=== PATIENT | male | born 1955 | race Caucasian/White ===

== ENCOUNTER 2017-01-02 10:31 | Inpatient (IN) | payer OTHER, BC ==
[~2017-01-02] VITALS: Ht 175.3 cm; Wt 58.4 kg
[2017-01-02 11:19] LABS: EOSINOPHIL (%) 0 % (0-5); IMMATURE GRANULOCYTE (%) 0.9 % (0.0-0.7); IMMATURE GRANULOCYTE COUNT 0.2 K/uL; INSTRUMENT ABS NEUTROPHIL CT 14.1 K/uL; LYMPHOCYTE COUNT 1.3 K/uL (1.0-2.8); MCH 28.7 PG (29.0-34.0); MCHC 34.3 G/DL (30.0-36.0); MCV 83.7 FL (86-99); MEAN PLAT.VOLUME 9.1 uM^3 (9.0-12.4); MONOCYTE (%) 8.5 % (3-12); MONOCYTE COUNT 1.5 K/uL (0-0.8); NEUTROPHIL (%) 82.7 % (45-76); NEUTROPHIL COUNT 14.1 K/uL (1.8-6.4); NRBC (%) 4.6 /100 WBC (0-0); PLATELET COUNT 387 K/uL (156-360); RBC DIS.WIDTH-CV 16.7 % (11.8-14.6); RED BLOOD COUNT 4.42 M/uL (4.00-5.50); WHITE BLOOD COUNT 17.1 K/uL (4.1-10.2)
[2017-01-02 11:25] LABS: INTER. NORMALIZED RATIO 1.6; PROTHROMBIN TIME 17.8 SEC (10.2-12.9)
[2017-01-02 11:27] LABS: PTT 28.4 SEC (25-37)
[2017-01-02 11:27] LABS: BASE EXCESS 0.4 mEq/L (-3 to +3); BICARBONATE 22.9 mEq/L (22-26); CARBOXY HGB 2.7 % (0-5); COMMENTS - BLOOD GASES C+; DEVICE HFNC; METHEMOGLOBIN 0.7 % (0-1.5); O2 FLOW 10 L/MIN; PCO2 30 mm Hg (35-45); PO2 74 mm Hg (80-100); SITE RB; pH 7.49 (7.35-7.45)
[2017-01-02 11:28] LABS: TOTAL RESP RATE 28 resp/min
[2017-01-02 11:29] LABS: CHLORIDE 104 mEq/L (99-109); POTASSIUM 4.7 mEq/L (3.7-5.4); SODIUM 138 mEq/L (136-147)
[2017-01-02 11:31] LABS: GLUCOSE 128 mg/dL (70-99)
[2017-01-02 11:32] LABS: ANION GAP 12 MEQ/L (2-14)
[2017-01-02 11:35] LABS: GFR ESTIMATE (CALCULATED) > 59 mL/min/; UREA NITROGEN (BUN) 33 mg/dL (9-23)
[2017-01-02 11:40] LABS: TROP-I INTERPRETATION NEGATIVE; TROPONIN-I 0.15 ng/mL (0.0-0.30)
[2017-01-02] MEDS ORDERED: OSTEO BI-FLEX1 EAC2 PO (13:15)
[2017-01-02] MEDS ORDERED: LORATADINE10 M2 PO (13:15)
[2017-01-02] MEDS ORDERED: NAPROSYN250 MG PO (13:15)
[2017-01-02] MEDS ORDERED: VITAMIN D31000 UNI2 PO (13:15)
[2017-01-02 16:00] VITALS: BP 115/73
[2017-01-02 16:15] VITALS: BP 115/73
[2017-01-02 19:30] LABS: TROP-I INTERPRETATION NEGATIVE; TROPONIN-I 0.17 ng/mL (0.0-0.30)
[2017-01-02 20:27] VITALS: BP 101/64
[2017-01-02 22:33] VITALS: BP 101/62
[2017-01-03] VITALS (7 sets, daily range): BP systolic 90–107; BP diastolic 58–72
[2017-01-03 04:46] LABS: HEMATOCRIT 34.8 % (38.0-50.0); MCH 28.8 PG (29.0-34.0); MCHC 34.5 G/DL (30.0-36.0); MCV 83.7 FL (86-99); NRBC (%) 4.9 /100 WBC (0-0); PLATELET COUNT 365 K/uL (156-360); RBC DIS.WIDTH-CV 16.6 % (11.8-14.6); RBC DIS.WIDTH-SD 45.9 % (39-53); RED BLOOD COUNT 4.16 M/uL (4.00-5.50)
[2017-01-03 05:10] LABS: CHLORIDE 104 mEq/L (99-109); POTASSIUM 4.3 mEq/L (3.7-5.4); SODIUM 138 mEq/L (136-147); TROP-I INTERPRETATION NEGATIVE; TROPONIN-I 0.17 ng/mL (0.0-0.30)
[2017-01-03 05:12] LABS: GLUCOSE 160 mg/dL (70-99)
[2017-01-03 05:13] LABS: ANION GAP 12 MEQ/L (2-14)
[2017-01-03 05:16] LABS: GFR ESTIMATE (CALCULATED) > 59 mL/min/; UREA NITROGEN (BUN) 36 mg/dL (9-23)
[2017-01-03 06:57] LABS: Estimated Average Glucose 163 mg/dL (70-123); HEMOGLOBIN A1c (GLYCOHEMOGLOB) 7.3 % HGB (Below 5.7)
[2017-01-04 05:14] LABS: EOSINOPHIL (%) 0 % (0-5); HEMATOCRIT 30.8 % (38.0-50.0); IMMATURE GRANULOCYTE (%) 0.7 % (0.0-0.7); IMMATURE GRANULOCYTE COUNT 0.2 K/uL; INSTRUMENT ABS NEUTROPHIL CT 18.8 K/uL; LYMPHOCYTE COUNT 0.7 K/uL (1.0-2.8); MCH 28.6 PG (29.0-34.0); MCHC 33.8 G/DL (30.0-36.0); MCV 84.6 FL (86-99); MEAN PLAT.VOLUME 8.9 uM^3 (9.0-12.4); MONOCYTE (%) 5.4 % (3-12); MONOCYTE COUNT 1.1 K/uL (0-0.8); NEUTROPHIL (%) 90.5 % (45-76); NEUTROPHIL COUNT 18.8 K/uL (1.8-6.4); NRBC (%) 2.1 /100 WBC (0-0); PLATELET COUNT 356 K/uL (156-360); RBC DIS.WIDTH-CV 16.5 % (11.8-14.6); RBC DIS.WIDTH-SD 46.5 % (39-53); RED BLOOD COUNT 3.64 M/uL (4.00-5.50); WHITE BLOOD COUNT 20.8 K/uL (4.1-10.2)
[2017-01-04 05:19] LABS: INTER. NORMALIZED RATIO 1.8; PROTHROMBIN TIME 21.1 SEC (10.2-12.9)
[2017-01-04 05:32] VITALS: BP 95/58
[2017-01-04 05:41] LABS: ALKALINE PHOSPHATASE 161 IU/L (3-129); ANION GAP 11 MEQ/L (2-14); CHLORIDE 104 MEQ/L (99-109); DIRECT BILIRUBIN 0.4 mg/dL (0.0-0.3); GFR ESTIMATE (CALCULATED) > 59 mL/min/; GLUCOSE 137 mg/dL (70-99); POTASSIUM 4.1 MEQ/L (3.7-5.4); SAMPLE HEMOLYSIS CHECK 0; SAMPLE ICTERIC CHECK 0; SAMPLE LIPEMIA CHECK 0; SODIUM 139 MEQ/L (136-147); TOTAL BILIRUBIN 0.8 MG/DL (0.0-1.0); UREA NITROGEN (BUN) 34 mg/dL (9-23)
[2017-01-04 08:50] VITALS: BP 130/61
[2017-01-04 12:46] VITALS: BP 109/69
[2017-01-04 15:41] VITALS: BP 132/54
[2017-01-04 19:46] VITALS: BP 114/71
[2017-01-05] VITALS (7 sets, daily range): BP systolic 97–115; BP diastolic 64–73
[2017-01-05 05:32] LABS: INTER. NORMALIZED RATIO 1.4; PROTHROMBIN TIME 16.5 SEC (10.2-12.9)
[2017-01-05 14:58] LABS: EOSINOPHIL (%) 0 % (0-5); IMMATURE GRANULOCYTE (%) 1.1 % (0.0-0.7); IMMATURE GRANULOCYTE COUNT 0.2 K/uL; INSTRUMENT ABS NEUTROPHIL CT 18.7 K/uL; LYMPHOCYTE COUNT 0.5 K/uL (1.0-2.8); MCHC 33.2 G/DL (30.0-36.0); MCV 87.4 FL (86-99); MEAN PLAT.VOLUME 9.1 uM^3 (9.0-12.4); MONOCYTE (%) 4.4 % (3-12); MONOCYTE COUNT 0.9 K/uL (0-0.8); NEUTROPHIL (%) 92.1 % (45-76); NEUTROPHIL COUNT 18.7 K/uL (1.8-6.4); NRBC (%) 1.3 /100 WBC (0-0); PLATELET COUNT 372 K/uL (156-360); RBC DIS.WIDTH-CV 17.7 % (11.8-14.6); RBC DIS.WIDTH-SD 52.3 % (39-53); RED BLOOD COUNT 3.89 M/uL (4.00-5.50); WHITE BLOOD COUNT 20.3 K/uL (4.1-10.2)
[2017-01-05 15:22] LABS: ALKALINE PHOSPHATASE 199 IU/L (3-129); ANION GAP 9 MEQ/L (2-14); CHLORIDE 105 MEQ/L (99-109); GFR ESTIMATE (CALCULATED) > 59 mL/min/; GLUCOSE 173 mg/dL (70-99); POTASSIUM 4.2 MEQ/L (3.7-5.4); SAMPLE HEMOLYSIS CHECK 0; SAMPLE ICTERIC CHECK 0; SAMPLE LIPEMIA CHECK 0; SODIUM 140 MEQ/L (136-147); UREA NITROGEN (BUN) 28 mg/dL (9-23)
[2017-01-06 04:41] LABS: EOSINOPHIL (%) 0 % (0-5); HEMATOCRIT 32.4 % (38.0-50.0); IMMATURE GRANULOCYTE (%) 0.9 % (0.0-0.7); IMMATURE GRANULOCYTE COUNT 0.2 K/uL; INSTRUMENT ABS NEUTROPHIL CT 14.6 K/uL; LYMPHOCYTE COUNT 0.5 K/uL (1.0-2.8); MCH 28.7 PG (29.0-34.0); MCHC 33.3 G/DL (30.0-36.0); MCV 86.2 FL (86-99); MONOCYTE (%) 5.8 % (3-12); NEUTROPHIL (%) 89.9 % (45-76); NEUTROPHIL COUNT 14.6 K/uL (1.8-6.4); NRBC (%) 0.9 /100 WBC (0-0); PLATELET COUNT 343 K/uL (156-360); RBC DIS.WIDTH-CV 17.4 % (11.8-14.6); RBC DIS.WIDTH-SD 50.5 % (39-53); RED BLOOD COUNT 3.76 M/uL (4.00-5.50); WHITE BLOOD COUNT 16.3 K/uL (4.1-10.2)
[2017-01-06 04:54] LABS: CHLORIDE 108 mEq/L (99-109); POTASSIUM 4.5 mEq/L (3.7-5.4); SODIUM 140 mEq/L (136-147)
[2017-01-06 04:55] LABS: INTER. NORMALIZED RATIO 1.4; PROTHROMBIN TIME 16.1 SEC (10.2-12.9)
[2017-01-06 04:56] VITALS: BP 99/60
[2017-01-06 04:56] LABS: GLUCOSE 140 mg/dL (70-99)
[2017-01-06 04:58] LABS: ANION GAP 7 MEQ/L (2-14)
[2017-01-06 05:00] LABS: GFR ESTIMATE (CALCULATED) > 59 mL/min/
[2017-01-06 05:01] LABS: UREA NITROGEN (BUN) 27 mg/dL (9-23)
[2017-01-06 07:34] VITALS: BP 98/64
[2017-01-06 08:05] LABS: POINT-OF-CARE METER ID UU13113698; POINT-OF-CARE USER ID NUTSLF44
[2017-01-06 10:50] LABS: HBSG INDEX 0.17
[2017-01-06 10:51] LABS: AHBS INDEX 0.11; HEPATITIS B SURFACE ANTIBODY Nonreactive; HPCA INDEX 0.23
[2017-01-06 11:31] VITALS: BP 102/69
[2017-01-06 11:38] LABS: POINT-OF-CARE METER ID UU13113698; POINT-OF-CARE USER ID NUTSLF44
[2017-01-06 14:53] VITALS: BP 114/70
[2017-01-06 15:17] LABS: TYPE OF FLUID PLEURAL
[2017-01-06 16:19] LABS: BODY FLUID RBC'S 4125 /MM^3 (0-100); BODY FLUID WBC'S 12925 /MM^3 (0-500); RED CELL AREA COUNTED 0.4; RED CELL DILUTION 1; WBC AREA COUNTED 0.4; WBC DILUTION 1; WHITE CELL RAW COUNT 517
[2017-01-06 17:12] LABS: POINT-OF-CARE METER ID UU14314088; POINT-OF-CARE USER ID NUTSLF44
[2017-01-06 17:14] LABS: BODY FLUID LDH 2628 IU/L; BODY FLUID PROTEIN < 3.0 G/DL
[2017-01-06 17:28] LABS: BODY FLUID EOSINOPHILS 0 % (0-25); MONO RAW COUNT 4; MONONUCLEAR WBC'S 4 %; POLY RAW COUNT 96; POLYNUCLEAR WBC'S 96 % (0-25)
[2017-01-06 20:45] VITALS: BP 103/74
[2017-01-07] VITALS (7 sets, daily range): BP systolic 97–104; BP diastolic 62–73
[2017-01-07 05:19] LABS: EOSINOPHIL (%) 0 % (0-5); HEMATOCRIT 31.9 % (38.0-50.0); IMMATURE GRANULOCYTE (%) 0.8 % (0.0-0.7); IMMATURE GRANULOCYTE COUNT 0.1 K/uL; INSTRUMENT ABS NEUTROPHIL CT 14.6 K/uL; LYMPHOCYTE COUNT 0.5 K/uL (1.0-2.8); MCH 29.2 PG (29.0-34.0); MCHC 33.9 G/DL (30.0-36.0); MCV 86.2 FL (86-99); MEAN PLAT.VOLUME 8.9 uM^3 (9.0-12.4); MONOCYTE (%) 3.8 % (3-12); MONOCYTE COUNT 0.6 K/uL (0-0.8); NEUTROPHIL (%) 92.4 % (45-76); NEUTROPHIL COUNT 14.6 K/uL (1.8-6.4); NRBC (%) 0.3 /100 WBC (0-0); PLATELET COUNT 309 K/uL (156-360); RBC DIS.WIDTH-CV 17.4 % (11.8-14.6); RBC DIS.WIDTH-SD 50.7 % (39-53); WHITE BLOOD COUNT 15.8 K/uL (4.1-10.2)
[2017-01-07 05:40] LABS: INTER. NORMALIZED RATIO 1.4; PROTHROMBIN TIME 15.9 SEC (10.2-12.9)
[2017-01-07 06:07] LABS: ALKALINE PHOSPHATASE 174 IU/L (3-129); ANION GAP 7 MEQ/L (2-14); CHLORIDE 101 MEQ/L (99-109); GFR ESTIMATE (CALCULATED) > 59 mL/min/; GLUCOSE 151 mg/dL (70-99); POTASSIUM 4.8 MEQ/L (3.7-5.4); SAMPLE HEMOLYSIS CHECK 0; SAMPLE ICTERIC CHECK 0; SAMPLE LIPEMIA CHECK 0; SODIUM 134 MEQ/L (136-147); TOTAL BILIRUBIN 0.8 MG/DL (0.0-1.0); UREA NITROGEN (BUN) 22 mg/dL (9-23)
[2017-01-07 08:09] LABS: POINT-OF-CARE METER ID UU14174216; POINT-OF-CARE USER ID NUTSLF44
[2017-01-07 08:53] LABS: IMM.RETIC FRACTION 7.2 % (3-19); RETIC HGB EQUIVALENT 29.8 (28-36); RETICULOCYTE COUNT 2.7 % (0.5-1.8)
[2017-01-07 09:15] LABS: FERRITIN 245 NG/ML (22-322); IRON 51 MCG/DL (35-150)
[2017-01-07 17:40] LABS: POINT-OF-CARE METER ID UU14174216; POINT-OF-CARE USER ID NUTSLF44
[2017-01-08 04:50] VITALS: BP 109/76
[2017-01-08 05:13] LABS: EOSINOPHIL (%) 0 % (0-5); HEMATOCRIT 31.3 % (38.0-50.0); IMMATURE GRANULOCYTE (%) 0.7 % (0.0-0.7); IMMATURE GRANULOCYTE COUNT 0.1 K/uL; INSTRUMENT ABS NEUTROPHIL CT 14.1 K/uL; LYMPHOCYTE COUNT 0.4 K/uL (1.0-2.8); MCH 28.7 PG (29.0-34.0); MCHC 33.2 G/DL (30.0-36.0); MCV 86.5 FL (86-99); MONOCYTE (%) 3.8 % (3-12); MONOCYTE COUNT 0.6 K/uL (0-0.8); NEUTROPHIL (%) 92.7 % (45-76); NEUTROPHIL COUNT 14.1 K/uL (1.8-6.4); NRBC (%) 0.1 /100 WBC (0-0); PLATELET COUNT 310 K/uL (156-360); RBC DIS.WIDTH-CV 16.9 % (11.8-14.6); RBC DIS.WIDTH-SD 50.5 % (39-53); RED BLOOD COUNT 3.62 M/uL (4.00-5.50); WHITE BLOOD COUNT 15.2 K/uL (4.1-10.2)
[2017-01-08 05:58] LABS: ALKALINE PHOSPHATASE 164 IU/L (3-129); ANION GAP 6 MEQ/L (2-14); CHLORIDE 101 MEQ/L (99-109); GFR ESTIMATE (CALCULATED) > 59 mL/min/; GLUCOSE 117 mg/dL (70-99); INTER. NORMALIZED RATIO 1.4; POTASSIUM 4.6 MEQ/L (3.7-5.4); PROTHROMBIN TIME 16.1 SEC (10.2-12.9); SAMPLE HEMOLYSIS CHECK 0; SAMPLE ICTERIC CHECK 0; SAMPLE LIPEMIA CHECK 0; SODIUM 134 MEQ/L (136-147); TOTAL BILIRUBIN 0.8 MG/DL (0.0-1.0); UREA NITROGEN (BUN) 20 mg/dL (9-23)
[2017-01-08 07:15] VITALS: BP 98/63
[2017-01-08 11:05] VITALS: BP 92/61
[2017-01-08 16:57] VITALS: BP 97/72
[2017-01-08 19:10] VITALS: BP 99/60
[2017-01-09] VITALS (7 sets, daily range): BP systolic 93–118; BP diastolic 61–76
[2017-01-09 05:26] LABS: EOSINOPHIL (%) 0 % (0-5); HEMATOCRIT 31.6 % (38.0-50.0); IMMATURE GRANULOCYTE (%) 0.8 % (0.0-0.7); IMMATURE GRANULOCYTE COUNT 0.1 K/uL; INSTRUMENT ABS NEUTROPHIL CT 13.1 K/uL; LYMPHOCYTE COUNT 0.4 K/uL (1.0-2.8); MCH 28.5 PG (29.0-34.0); MCHC 32.6 G/DL (30.0-36.0); MCV 87.3 FL (86-99); MONOCYTE (%) 4.8 % (3-12); MONOCYTE COUNT 0.7 K/uL (0-0.8); NEUTROPHIL (%) 91.5 % (45-76); NEUTROPHIL COUNT 13.1 K/uL (1.8-6.4); NRBC (%) 0.1 /100 WBC (0-0); PLATELET COUNT 290 K/uL (156-360); RBC DIS.WIDTH-CV 17.2 % (11.8-14.6); RBC DIS.WIDTH-SD 51.8 % (39-53); RED BLOOD COUNT 3.62 M/uL (4.00-5.50); WHITE BLOOD COUNT 14.3 K/uL (4.1-10.2)
[2017-01-09 05:30] LABS: INTER. NORMALIZED RATIO 1.5; PROTHROMBIN TIME 17.1 SEC (10.2-12.9)
[2017-01-09 05:57] LABS: ALKALINE PHOSPHATASE 161 IU/L (3-129); ANION GAP 5 MEQ/L (2-14); CHLORIDE 99 MEQ/L (99-109); GFR ESTIMATE (CALCULATED) > 59 mL/min/; GLUCOSE 105 mg/dL (70-99); POTASSIUM 4.4 MEQ/L (3.7-5.4); SAMPLE HEMOLYSIS CHECK 0; SAMPLE ICTERIC CHECK 0; SAMPLE LIPEMIA CHECK 0; SODIUM 135 MEQ/L (136-147); TOTAL BILIRUBIN 0.8 MG/DL (0.0-1.0); UREA NITROGEN (BUN) 19 mg/dL (9-23)
[2017-01-09 16:43] LABS: POINT-OF-CARE METER ID UU13113698; POINT-OF-CARE USER ID NUTSLF44
[2017-01-10 00:22] VITALS: BP 91/56
[2017-01-10 04:51] VITALS: BP 94/63
[2017-01-10 05:32] LABS: EOSINOPHIL (%) 0 % (0-5); HEMATOCRIT 28.5 % (38.0-50.0); IMMATURE GRANULOCYTE (%) 0.5 % (0.0-0.7); IMMATURE GRANULOCYTE COUNT 0.1 K/uL; INSTRUMENT ABS NEUTROPHIL CT 10.5 K/uL; LYMPHOCYTE COUNT 0.8 K/uL (1.0-2.8); MCH 28.7 PG (29.0-34.0); MCV 86.9 FL (86-99); MEAN PLAT.VOLUME 8.9 uM^3 (9.0-12.4); MONOCYTE (%) 7.9 % (3-12); NEUTROPHIL (%) 85.2 % (45-76); NEUTROPHIL COUNT 10.5 K/uL (1.8-6.4); PLATELET COUNT 279 K/uL (156-360); RBC DIS.WIDTH-CV 17.3 % (11.8-14.6); RBC DIS.WIDTH-SD 52.6 % (39-53); RED BLOOD COUNT 3.28 M/uL (4.00-5.50); WHITE BLOOD COUNT 12.3 K/uL (4.1-10.2)
[2017-01-10 05:34] LABS: INTER. NORMALIZED RATIO 1.8; PROTHROMBIN TIME 20.3 SEC (10.2-12.9)
[2017-01-10 05:59] LABS: ALKALINE PHOSPHATASE 162 IU/L (3-129); ANION GAP 4 MEQ/L (2-14); CHLORIDE 101 MEQ/L (99-109); GFR ESTIMATE (CALCULATED) > 59 mL/min/; GLUCOSE 102 mg/dL (70-99); POTASSIUM 4.2 MEQ/L (3.7-5.4); SAMPLE HEMOLYSIS CHECK 0; SAMPLE ICTERIC CHECK 0; SAMPLE LIPEMIA CHECK 0; SODIUM 136 MEQ/L (136-147); TOTAL BILIRUBIN 0.7 MG/DL (0.0-1.0); UREA NITROGEN (BUN) 17 mg/dL (9-23)
[2017-01-10 08:14] VITALS: BP 88/56
[2017-01-10 12:00] VITALS: BP 97/68
[2017-01-10 16:17] VITALS: BP 103/76
[2017-01-10 22:08] VITALS: BP 99/64
[2017-01-11 00:40] VITALS: BP 101/69
[2017-01-11 04:03] VITALS: BP 96/64
[2017-01-11 06:33] LABS: INTER. NORMALIZED RATIO 2.4; PROTHROMBIN TIME 27.4 SEC (10.2-12.9)
[2017-01-11 06:45] LABS: EOSINOPHIL (%) 0.8 % (0-5); EOSINOPHIL COUNT 0.1 K/uL (0-0.3); IMMATURE GRANULOCYTE (%) 0.4 % (0.0-0.7); INSTRUMENT ABS NEUTROPHIL CT 5.5 K/uL; LYMPHOCYTE COUNT 1.2 K/uL (1.0-2.8); MCH 28.4 PG (29.0-34.0); MCHC 33.1 G/DL (30.0-36.0); MCV 85.8 FL (86-99); MEAN PLAT.VOLUME 9.3 uM^3 (9.0-12.4); MONOCYTE (%) 10.9 % (3-12); MONOCYTE COUNT 0.8 K/uL (0-0.8); NEUTROPHIL (%) 72.1 % (45-76); NEUTROPHIL COUNT 5.5 K/uL (1.8-6.4); PLATELET COUNT 270 K/uL (156-360); RBC DIS.WIDTH-CV 17.1 % (11.8-14.6); RBC DIS.WIDTH-SD 50.7 % (39-53); RED BLOOD COUNT 3.38 M/uL (4.00-5.50); WHITE BLOOD COUNT 7.6 K/uL (4.1-10.2)
[2017-01-11 07:04] LABS: ALKALINE PHOSPHATASE 137 IU/L (3-129); ANION GAP 5 MEQ/L (2-14); CHLORIDE 100 MEQ/L (99-109); GFR ESTIMATE (CALCULATED) > 59 mL/min/; POTASSIUM 3.8 MEQ/L (3.7-5.4); SAMPLE HEMOLYSIS CHECK 0; SAMPLE ICTERIC CHECK 0; SAMPLE LIPEMIA CHECK 0; SODIUM 135 MEQ/L (136-147); TOTAL BILIRUBIN 0.6 MG/DL (0.0-1.0); UREA NITROGEN (BUN) 12 mg/dL (9-23)
[2017-01-11 07:14] LABS: GLUCOSE 69 mg/dL (70-99)
[2017-01-11 08:30] VITALS: BP 108/78; BP 18/78
[2017-01-11 12:29] LABS: POINT-OF-CARE METER ID UU14314088; POINT-OF-CARE USER ID ENVKC36
[2017-01-11 12:39] VITALS: BP 11/60; BP 110/60
[2017-01-11 16:45] VITALS: BP 118/64
[2017-01-11 17:02] LABS: POINT-OF-CARE METER ID UU14314088; POINT-OF-CARE USER ID ENVKC36
[2017-01-11 20:59] LABS: POINT-OF-CARE METER ID UU14314088; POINT-OF-CARE USER ID ENVMNS
[2017-01-11 23:08] VITALS: BP 98/65; BP 99/73
[2017-01-12 02:51] VITALS: BP 89/59
[2017-01-12 05:23] LABS: INTER. NORMALIZED RATIO 3.5
[2017-01-12 05:29] LABS: EOSINOPHIL (%) 1.2 % (0-5); EOSINOPHIL COUNT 0.1 K/uL (0-0.3); HEMATOCRIT 30.6 % (38.0-50.0); IMMATURE GRANULOCYTE (%) 0.7 % (0.0-0.7); IMMATURE GRANULOCYTE COUNT 0.1 K/uL; INSTRUMENT ABS NEUTROPHIL CT 4.8 K/uL; LYMPHOCYTE COUNT 1.1 K/uL (1.0-2.8); MCH 28.3 PG (29.0-34.0); MCHC 32.7 G/DL (30.0-36.0); MCV 86.7 FL (86-99); MEAN PLAT.VOLUME 9.1 uM^3 (9.0-12.4); MONOCYTE (%) 12.2 % (3-12); MONOCYTE COUNT 0.8 K/uL (0-0.8); NEUTROPHIL (%) 69.9 % (45-76); NEUTROPHIL COUNT 4.8 K/uL (1.8-6.4); PLATELET COUNT 298 K/uL (156-360); PROTHROMBIN TIME 39.8 SEC (10.2-12.9); RBC DIS.WIDTH-CV 17.4 % (11.8-14.6); RED BLOOD COUNT 3.53 M/uL (4.00-5.50); WHITE BLOOD COUNT 6.9 K/uL (4.1-10.2)
[2017-01-12 05:44] LABS: ALKALINE PHOSPHATASE 137 IU/L (3-129); ANION GAP 6 MEQ/L (2-14); CHLORIDE 97 MEQ/L (99-109); GFR ESTIMATE (CALCULATED) > 59 mL/min/; GLUCOSE 63 mg/dL (70-99); POTASSIUM 3.5 MEQ/L (3.7-5.4); SAMPLE HEMOLYSIS CHECK 0; SAMPLE ICTERIC CHECK 0; SAMPLE LIPEMIA CHECK 0; SODIUM 135 MEQ/L (136-147); TOTAL BILIRUBIN 0.7 MG/DL (0.0-1.0); UREA NITROGEN (BUN) 12 mg/dL (9-23)
[2017-01-12 07:42] LABS: POINT-OF-CARE METER ID UU14314088
[2017-01-12 07:54] VITALS: BP 99/62
[2017-01-12 11:30] LABS: POINT-OF-CARE METER ID UU14314088
[2017-01-12 11:32] VITALS: BP 95/62
[2017-01-12 17:57] LABS: POINT-OF-CARE METER ID UU14314088
[2017-01-12 19:36] VITALS: BP 93/59
[2017-01-12 21:31] LABS: POINT-OF-CARE METER ID UU14314088
[2017-01-13 00:16] VITALS: BP 103/71
[2017-01-13 05:03] VITALS: BP 95/64
[2017-01-13 05:49] LABS: INTER. NORMALIZED RATIO 3.9; PROTHROMBIN TIME 44.9 SEC (10.2-12.9)
[2017-01-13 08:23] LABS: POINT-OF-CARE METER ID UU14174216
[2017-01-13 08:43] VITALS: BP 95/66
[2017-01-13 11:14] LABS: HIV INDEX 0.08; HIV-1/2 AB/AG COMBO Nonreactive
[2017-01-13 12:12] LABS: POINT-OF-CARE METER ID UU14174216
[2017-01-13 12:52] VITALS: BP 100/69
[2017-01-13 16:07] VITALS: BP 92/57
[2017-01-13 16:31] LABS: POINT-OF-CARE METER ID UU13113698
[2017-01-13 21:08] LABS: POINT-OF-CARE METER ID UU14314088
[2017-01-13 22:50] VITALS: BP 89/58
[2017-01-14 03:11] VITALS: BP 101/62
[2017-01-14 05:40] LABS: HEMATOCRIT 33.9 % (38.0-50.0); MCH 29.2 PG (29.0-34.0); MCHC 33.6 G/DL (30.0-36.0); MCV 86.9 FL (86-99); MEAN PLAT.VOLUME 8.9 uM^3 (9.0-12.4); PLATELET COUNT 277 K/uL (156-360); RBC DIS.WIDTH-CV 17.7 % (11.8-14.6); RBC DIS.WIDTH-SD 53.3 % (39-53); WHITE BLOOD COUNT 7.4 K/uL (4.1-10.2)
[2017-01-14 05:54] LABS: INTER. NORMALIZED RATIO 2.7
[2017-01-14 06:14] LABS: ANION GAP 5 MEQ/L (2-14); CHLORIDE 100 MEQ/L (99-109); GFR ESTIMATE (CALCULATED) > 59 mL/min/; POTASSIUM 3.9 MEQ/L (3.7-5.4); SAMPLE HEMOLYSIS CHECK 0; SAMPLE ICTERIC CHECK 0; SAMPLE LIPEMIA CHECK 0; SODIUM 137 MEQ/L (136-147); UREA NITROGEN (BUN) 15 mg/dL (9-23)
[2017-01-14 06:15] LABS: GLUCOSE 97 mg/dL (70-99)
[2017-01-14 06:35] LABS: PROTHROMBIN TIME 31.2 SEC (10.2-12.9)
[2017-01-14 07:34] VITALS: BP 91/58
[2017-01-14 08:03] LABS: POINT-OF-CARE METER ID UU13113781; POINT-OF-CARE USER ID ENVKC36
[2017-01-14 11:42] LABS: POINT-OF-CARE METER ID UU13113698; POINT-OF-CARE USER ID ENVKC36
[2017-01-14 11:45] VITALS: BP 96/63
[2017-01-14 15:22] VITALS: BP 105/56
[2017-01-14 16:32] LABS: POINT-OF-CARE METER ID UU13113781; POINT-OF-CARE USER ID ENVKC36
[2017-01-14 19:00] VITALS: BP 96/53
[2017-01-14 21:44] LABS: POINT-OF-CARE METER ID UU14314088
[2017-01-14 23:41] VITALS: BP 102/66
[2017-01-15 04:00] VITALS: BP 98/62
[2017-01-15 04:47] LABS: MCHC 33.9 G/DL (30.0-36.0); MCV 85.5 FL (86-99); MEAN PLAT.VOLUME 9.1 uM^3 (9.0-12.4); PLATELET COUNT 258 K/uL (156-360); RBC DIS.WIDTH-CV 17.2 % (11.8-14.6); RBC DIS.WIDTH-SD 50.6 % (39-53); RED BLOOD COUNT 3.86 M/uL (4.00-5.50); WHITE BLOOD COUNT 7.9 K/uL (4.1-10.2)
[2017-01-15 04:56] LABS: INTER. NORMALIZED RATIO 1.9; PROTHROMBIN TIME 21.7 SEC (10.2-12.9)
[2017-01-15 05:02] LABS: CHLORIDE 103 mEq/L (99-109); POTASSIUM 3.5 mEq/L (3.7-5.4); SODIUM 136 mEq/L (136-147)
[2017-01-15 05:05] LABS: ANION GAP 9 MEQ/L (2-14)
[2017-01-15 05:07] LABS: GFR ESTIMATE (CALCULATED) > 59 mL/min/
[2017-01-15 05:08] LABS: UREA NITROGEN (BUN) 15 mg/dL (9-23)
[2017-01-15 05:14] LABS: GLUCOSE 146 mg/dL (70-99)
[2017-01-15 07:45] VITALS: BP 99/67
[2017-01-15 07:47] LABS: POINT-OF-CARE METER ID UU14174216
[2017-01-15 11:31] VITALS: BP 91/61
[2017-01-15 11:40] LABS: POINT-OF-CARE METER ID UU14314088
[2017-01-15 16:24] LABS: POINT-OF-CARE METER ID UU13113698
[2017-01-15 16:30] VITALS: BP 104/63
[2017-01-15 19:10] VITALS: BP 99/65
[2017-01-15 21:42] LABS: POINT-OF-CARE METER ID UU13113698
[2017-01-15 22:55] VITALS: BP 90/56
[2017-01-16] VITALS (7 sets, daily range): BP systolic 93–110; BP diastolic 57–73
[2017-01-16 05:32] LABS: INTER. NORMALIZED RATIO 1.7; PROTHROMBIN TIME 19.1 SEC (10.2-12.9)
[2017-01-16 07:32] LABS: POINT-OF-CARE METER ID UU14174216
[2017-01-16 11:15] LABS: POINT-OF-CARE METER ID UU13113698
[2017-01-16 16:40] LABS: POINT-OF-CARE METER ID UU13113698
[2017-01-16 21:11] LABS: POINT-OF-CARE METER ID UU14174216
[2017-01-17 04:05] VITALS: BP 92/63
[2017-01-17 06:09] LABS: EOSINOPHIL (%) 2.2 % (0-5); EOSINOPHIL COUNT 0.2 K/uL (0-0.3); HEMATOCRIT 35.5 % (38.0-50.0); IMMATURE GRANULOCYTE (%) 1.2 % (0.0-0.7); IMMATURE GRANULOCYTE COUNT 0.1 K/uL; INSTRUMENT ABS NEUTROPHIL CT 5.1 K/uL; LYMPHOCYTE COUNT 1.1 K/uL (1.0-2.8); MCHC 33.5 G/DL (30.0-36.0); MCV 86.4 FL (86-99); MEAN PLAT.VOLUME 9.2 uM^3 (9.0-12.4); MONOCYTE (%) 11.5 % (3-12); MONOCYTE COUNT 0.8 K/uL (0-0.8); NEUTROPHIL (%) 69.7 % (45-76); NEUTROPHIL COUNT 5.1 K/uL (1.8-6.4); PLATELET COUNT 213 K/uL (156-360); RBC DIS.WIDTH-CV 18.2 % (11.8-14.6); RBC DIS.WIDTH-SD 53.6 % (39-53); RED BLOOD COUNT 4.11 M/uL (4.00-5.50); WHITE BLOOD COUNT 7.3 K/uL (4.1-10.2)
[2017-01-17 06:44] LABS: ALKALINE PHOSPHATASE 167 IU/L (3-129); ANION GAP 8 MEQ/L (2-14); CHLORIDE 101 MEQ/L (99-109); GFR ESTIMATE (CALCULATED) > 59 mL/min/; POTASSIUM 4.1 MEQ/L (3.7-5.4); SAMPLE HEMOLYSIS CHECK 0; SAMPLE ICTERIC CHECK 0; SAMPLE LIPEMIA CHECK 0; SODIUM 138 MEQ/L (136-147); TOTAL BILIRUBIN 0.7 MG/DL (0.0-1.0); UREA NITROGEN (BUN) 16 mg/dL (9-23)
[2017-01-17 06:53] LABS: INTER. NORMALIZED RATIO 1.5; PROTHROMBIN TIME 16.8 SEC (10.2-12.9)
[2017-01-17 06:59] LABS: GLUCOSE 78 mg/dL (70-99)
[2017-01-17 08:00] LABS: POINT-OF-CARE METER ID UU13113781
[2017-01-17 08:25] VITALS: BP 97/64
[2017-01-17 11:46] LABS: POINT-OF-CARE METER ID UU13113781
[2017-01-17 15:15] VITALS: BP 98/66
[2017-01-17 16:13] LABS: POINT-OF-CARE METER ID UU13113781
[2017-01-17 19:00] VITALS: BP 93/59
[2017-01-17 20:48] LABS: POINT-OF-CARE METER ID UU14174216
[2017-01-17 23:52] VITALS: BP 94/57
[2017-01-18 04:00] VITALS: BP 93/63
[2017-01-18 04:40] LABS: EOSINOPHIL COUNT 0.2 K/uL (0-0.3); HEMATOCRIT 34.6 % (38.0-50.0); IMMATURE GRANULOCYTE (%) 0.7 % (0.0-0.7); IMMATURE GRANULOCYTE COUNT 0.1 K/uL; INSTRUMENT ABS NEUTROPHIL CT 5.1 K/uL; LYMPHOCYTE COUNT 1.5 K/uL (1.0-2.8); MCH 28.5 PG (29.0-34.0); MCHC 33.2 G/DL (30.0-36.0); MCV 85.6 FL (86-99); MEAN PLAT.VOLUME 8.6 uM^3 (9.0-12.4); MONOCYTE COUNT 0.9 K/uL (0-0.8); NEUTROPHIL (%) 66.2 % (45-76); NEUTROPHIL COUNT 5.1 K/uL (1.8-6.4); PLATELET COUNT 203 K/uL (156-360); RBC DIS.WIDTH-CV 17.6 % (11.8-14.6); RBC DIS.WIDTH-SD 51.8 % (39-53); RED BLOOD COUNT 4.04 M/uL (4.00-5.50); WHITE BLOOD COUNT 7.6 K/uL (4.1-10.2)
[2017-01-18 04:48] LABS: CHLORIDE 102 mEq/L (99-109); POTASSIUM 4.4 mEq/L (3.7-5.4); SODIUM 138 mEq/L (136-147)
[2017-01-18 04:52] LABS: ANION GAP 7 MEQ/L (2-14)
[2017-01-18 04:53] LABS: TOTAL BILIRUBIN 0.7 mg/dL (0.0-1.0)
[2017-01-18 04:54] LABS: ALKALINE PHOSPHATASE 173 IU/L (3-129); GFR ESTIMATE (CALCULATED) > 59 mL/min/ (58.99-99999)
[2017-01-18 04:55] LABS: UREA NITROGEN (BUN) 15 mg/dL (9-23)
[2017-01-18 05:04] LABS: GLUCOSE 109 mg/dL (70-99)
[2017-01-18 05:19] LABS: INTER. NORMALIZED RATIO 1.5
[2017-01-18 07:26] VITALS: BP 95/65
[2017-01-18 07:47] LABS: POINT-OF-CARE METER ID UU14174216
[2017-01-18 11:27] VITALS: BP 92/63
[2017-01-18 11:30] LABS: POINT-OF-CARE METER ID UU14174216
[2017-01-18 15:41] VITALS: BP 90/57
[2017-01-18 16:26] LABS: POINT-OF-CARE METER ID UU14174216
[2017-01-18 19:34] VITALS: BP 92/60
[2017-01-18 21:04] LABS: POINT-OF-CARE METER ID UU13113698
[2017-01-18 23:34] VITALS: BP 95/68
[2017-01-19 04:31] VITALS: BP 93/59
[2017-01-19 05:48] LABS: EOSINOPHIL (%) 1.7 % (0-5); EOSINOPHIL COUNT 0.1 K/uL (0-0.3); HEMATOCRIT 34.3 % (38.0-50.0); IMMATURE GRANULOCYTE (%) 0.5 % (0.0-0.7); INSTRUMENT ABS NEUTROPHIL CT 5.2 K/uL; LYMPHOCYTE COUNT 1.4 K/uL (1.0-2.8); MCH 29.3 PG (29.0-34.0); MCHC 34.4 G/DL (30.0-36.0); MCV 85.1 FL (86-99); MEAN PLAT.VOLUME 9.4 uM^3 (9.0-12.4); MONOCYTE (%) 11.9 % (3-12); MONOCYTE COUNT 0.9 K/uL (0-0.8); NEUTROPHIL (%) 67.3 % (45-76); NEUTROPHIL COUNT 5.2 K/uL (1.8-6.4); PLATELET COUNT 200 K/uL (156-360); RBC DIS.WIDTH-CV 17.8 % (11.8-14.6); RBC DIS.WIDTH-SD 51.5 % (39-53); RED BLOOD COUNT 4.03 M/uL (4.00-5.50); WHITE BLOOD COUNT 7.7 K/uL (4.1-10.2)
[2017-01-19 05:55] LABS: INTER. NORMALIZED RATIO 1.3; PROTHROMBIN TIME 15.2 SEC (10.2-12.9)
[2017-01-19 06:14] LABS: ALKALINE PHOSPHATASE 173 IU/L (3-129); ANION GAP 8 MEQ/L (2-14); CHLORIDE 103 MEQ/L (99-109); GFR ESTIMATE (CALCULATED) > 59 mL/min/ (58.99-99999); GLUCOSE 90 mg/dL (70-99); POTASSIUM 4.4 MEQ/L (3.7-5.4); SAMPLE HEMOLYSIS CHECK 0; SAMPLE ICTERIC CHECK 0; SAMPLE LIPEMIA CHECK 0; SODIUM 137 MEQ/L (136-147); TOTAL BILIRUBIN 0.7 MG/DL (0.0-1.0); UREA NITROGEN (BUN) 17 mg/dL (9-23)
[2017-01-19 07:40] VITALS: BP 86/55
[2017-01-19 08:04] LABS: POINT-OF-CARE METER ID UU13113698
[2017-01-19 12:09] LABS: POINT-OF-CARE METER ID UU13113698
[2017-01-19 12:50] VITALS: BP 93/64
[2017-01-19 16:40] VITALS: BP 89/55
[2017-01-19 16:48] LABS: POINT-OF-CARE METER ID UU14174216
[2017-01-19 19:27] VITALS: BP 97/63
[2017-01-19 22:04] LABS: GLUCOSE 130 mg/dL (70-99)
[2017-01-19 23:26] VITALS: BP 91/59
[2017-01-20 04:00] VITALS: BP 101/59
[2017-01-20 06:08] LABS: INTER. NORMALIZED RATIO 1.4; PROTHROMBIN TIME 15.9 SEC (10.2-12.9)
[2017-01-20 07:25] VITALS: BP 102/68
[2017-01-20 08:01] LABS: POINT-OF-CARE METER ID UU13113781
[2017-01-20 11:58] LABS: POINT-OF-CARE METER ID UU14314088
[2017-01-20 12:28] VITALS: BP 89/56
[2017-01-20 16:26] LABS: POINT-OF-CARE METER ID UU14174216
[2017-01-20 16:28] VITALS: BP 86/57
[2017-01-20 20:14] VITALS: BP 91/59
[2017-01-20 20:45] LABS: POINT-OF-CARE METER ID UU14174216
[2017-01-20 23:00] VITALS: BP 99/65
[2017-01-21 04:00] VITALS: BP 93/58
[2017-01-21 05:45] LABS: INTER. NORMALIZED RATIO 1.5; PROTHROMBIN TIME 17.3 SEC (10.2-12.9)
[2017-01-21 05:46] LABS: HEMATOCRIT 33.4 % (38.0-50.0); MCH 28.4 PG (29.0-34.0); MCHC 32.9 G/DL (30.0-36.0); MCV 86.1 FL (86-99); MEAN PLAT.VOLUME 8.9 uM^3 (9.0-12.4); PLATELET COUNT 174 K/uL (156-360); RBC DIS.WIDTH-CV 17.9 % (11.8-14.6); RBC DIS.WIDTH-SD 53.4 % (39-53); RED BLOOD COUNT 3.88 M/uL (4.00-5.50); WHITE BLOOD COUNT 7.7 K/uL (4.1-10.2)
[2017-01-21 06:10] LABS: ALKALINE PHOSPHATASE 140 IU/L (3-129); ANION GAP 8 MEQ/L (2-14); CHLORIDE 103 MEQ/L (99-109); GFR ESTIMATE (CALCULATED) > 59 mL/min/ (58.99-99999); GLUCOSE 102 mg/dL (70-99); POTASSIUM 3.8 MEQ/L (3.7-5.4); SAMPLE HEMOLYSIS CHECK 0; SAMPLE ICTERIC CHECK 0; SAMPLE LIPEMIA CHECK 0; SODIUM 138 MEQ/L (136-147); TOTAL BILIRUBIN 0.6 MG/DL (0.0-1.0); UREA NITROGEN (BUN) 16 mg/dL (9-23)
[2017-01-21 06:46] LABS: EOSINOPHIL (%) 2.7 % (0-5); EOSINOPHIL COUNT 0.2 K/uL (0-0.3); IMMATURE GRANULOCYTE (%) 0.4 % (0.0-0.7); INSTRUMENT ABS NEUTROPHIL CT 4.7 K/uL; LYMPHOCYTE COUNT 1.7 K/uL (1.0-2.8); NEUTROPHIL (%) 61.5 % (45-76); NEUTROPHIL COUNT 4.7 K/uL (1.8-6.4)
[2017-01-21 08:00] VITALS: BP 95/71
[2017-01-21 08:04] LABS: POINT-OF-CARE METER ID UU14314088; POINT-OF-CARE USER ID ENVKC36
[2017-01-21 12:00] VITALS: BP 107/65
[2017-01-21 12:34] LABS: POINT-OF-CARE METER ID UU13113781
[2017-01-21] MEDS ORDERED: FUROSEMIDE20 MG PO (14:14)
[2017-01-21] MEDS ORDERED: SPIRIVA RESPIMAT4 GM IH (14:14)
[2017-01-21] MEDS ORDERED: COUMADIN5 MG PO (14:14)
[2017-01-21] MEDS ORDERED: DOCUSATE SODIU100 MG PO (14:14)
[2017-01-21] MEDS ORDERED: NICOTINE PATCH1 EAC2 TD (14:14)
[2017-01-21] MEDS ORDERED: LOVENOX60 MG/0.6 SC (14:14)
[2017-01-21] MEDS ORDERED: THERAGRAN1 TABLET PO (14:14)
[2017-01-21] MEDS ORDERED: ADVAIR HFA120 INHALA IH (14:14)
[2017-01-21] MEDS ORDERED: BACTROBAN OINTM22 GM TP (14:14)
[2017-01-21] MEDS ORDERED: ASCORBIC ACID500 M3 PO (14:14)
[2017-01-21 14:15] LABS: POINT-OF-CARE METER ID UU14314088
[2017-01-21] MEDS ORDERED: VENTOLIN HFA18 GM IH (14:22)
[2017-01-21] MEDS ORDERED: OXYCODONE HCL5 MG PO (15:18)
== END 2017-01-21 15:51 | disposition home or self-care (01) | DRG 871 ==
LOC: EME 10:31 → 4EAST 11:52 → EDOF 11:52 → ENRESERV 11:54 → CANRESERV 11:54 → ENRESERV 11:55 → EDOF 12:10 → 4EAST 13:56 → ENRESERV 01-03 14:02 → 4EAST 01-14 08:56 → ENPENDDIS 01-21 → 4EAST 01-21 15:51
PROVIDERS: Emergency Medicine; Hospitalist; Internal Medicine; Internal Medicine Infectious Disease; Internal Medicine Pulmonary Disease; Student in an Organized Health Care Education/Training Program; Surgery
PROC: 0W9930Z Drainage of Right Pleural Cavity with Drainage Device, Percutaneous Approach (ICD-10-PCS; principal; 2017-01-02)
PROC: 0W9930Z Drainage of Right Pleural Cavity with Drainage Device, Percutaneous Approach (ICD-10-PCS; 2017-01-05)
DX: A41.9 Sepsis, unspecified organism (principal); J15.9 Unspecified bacterial pneumonia; J96.01 Acute respiratory failure with hypoxia; J18.9 Pneumonia, unspecified organism; I50.810 Right heart failure, unspecified; J44.0 Chronic obstructive pulmonary disease with (acute) lower respiratory infection; J44.1 Chronic obstructive pulmonary disease with (acute) exacerbation; T85.79XA Infection and inflammatory reaction due to other internal prosthetic devices, implants and grafts, initial encounter; Y82.8 Other medical devices associated with adverse incidents; B95.61 Methicillin susceptible Staphylococcus aureus infection as the cause of diseases classified elsewhere; I27.29 Other secondary pulmonary hypertension; I26.99 Other pulmonary embolism without acute cor pulmonale; R64 Cachexia; J93.83 Other pneumothorax; E78.5 Hyperlipidemia, unspecified; I82.413 Acute embolism and thrombosis of femoral vein, bilateral; I82.442 Acute embolism and thrombosis of left tibial vein; E55.9 Vitamin D deficiency, unspecified; E86.0 Dehydration; F17.210 Nicotine dependence, cigarettes, uncomplicated; D64.9 Anemia, unspecified; E11.9 Type 2 diabetes mellitus without complications; I07.1 Rheumatic tricuspid insufficiency; E04.1 Nontoxic single thyroid nodule; Q21.1 Atrial septal defect; E67.3 Hypervitaminosis D; J98.2 Interstitial emphysema; B37.0 Candidal stomatitis; F05 Delirium due to known physiological condition; R18.8 Other ascites
CPT/HCPCS: 36600; 71010; 71020; 71250; 71260; 74177; 80048; 80053; 80076; 80202; 81003; 82103 90; 82306; 82607; 82728; 82746; 82803; 82945; 82948; 83036; 83540; 83605; 83615; 83615 91; 83880; 84155; 84157; 84443; 84466; 84484; 84999; 85025; 85027; 85045; 85610; 85730; 86703; 86706; 86803; 87040; 87070; 87075; 87077; 87116; 87147; 87205; 87206; 87340; 88108; 88305; 89051; 92610 GN; 93005; 93306; 93970; 94010; 94640; 94640 76; 94760; 94799; 97530 GO; 97530 GP; 99202; 99281; 99285; J0295; J0456; J0696; J1650; J1815; J1940; J2250; J2920; J2930; J3370; J7030; J7050; J7512